=== PATIENT | male | born 2000 | race Two or more races ===

== ENCOUNTER 2020-08-27 10:11 | Emergency (ER) | payer OTHER, SELFPAY ==
--- NOTE | ~2020-08-27 | CT_ITS ---
EXAMINATION: CT FACIAL BONES WITH CONTRAST CLINICAL INFORMATION: Right facial swelling COMPARISON: None TECHNIQUE: 3 mm thin axial and reformatted 1.5 mm thin sagittal and coronal images of facial bones were obtained. This CT examination was performed using dose optimization techniques as appropriate, variously including the following: *Automated exposure control *Adjustment of mA and/or kV according to patient size (this includes techniques or standardized protocols for targeted exams where dose is matched to indication/reason for exam; i.e. extremities or head) *Use of iterative reconstruction technique DLP: 328 mGy-cm FINDINGS: Dental amalgam artifacts are seen throughout the oral cavity. There is no acute maxillofacial fracture. The pterygoid plates are intact. The zygomatic arches are intact. The lamina papyracea are intact. The orbital rims are intact. The paranasal sinuses are well-aerated. No air-fluid levels are seen. There is mild deviation of the nasal septum to the left. The ostiomeatal complexes are clear. The lamina papyracea are intact. The ethmoid roofs are symmetric. The carotid canals are normally covered by bone. No maxillary periapical disease is seen. There is mild soft tissue swelling along the right mandibular region, nonspecific edema. No evidence of dental abscess or fluid collection. The mastoid air cells and visualized middle ear cavities are well-aerated. The orbits are normal. The TMJs are unremarkable. The imaged portions of the brain demonstrate no acute abnormality. CT/CT facial bones w con IMPRESSION: No evidence of mass or dental abscess.. There is mild nonspecific right mandibular and maxillofacial soft tissue edema..
[2020-08-27 10:23] VITALS: BP 145/85; PULSE 93; RESP 16; TEMP 36.8; O2SAT 98; BMI 23.7
[2020-08-27 11:06] LABS: MANUAL DIFF FLAG NO
[2020-08-27 11:09] LABS: Basophils Percent Auto 0.4 % (0-2); Eosinophils Percent Auto 0.6 % (0-4); Hematocrit 47.2 % (42-52); Hemoglobin 15.2 g/dl (14.0-18.0); Imm Gran Abs Auto 0.02 X10*3/uL (0.00-0.03); Imm Gran Pct Auto 0.3 % (0.0-0.4); Lymphocytes Absolute Auto 1.8 X10*3/uL (1.2-4.9); Lymphocytes Percent Auto 25.8 % (20-40); Mean Corpuscular HGB Conc 32.2 g/dl (31.0-36.0); Mean Corpuscular Volume 90.1 fL (80-98); Mean Platelet Volume 10.8 fL (9.4-12.4); Monocytes Absolute Auto 0.7 X10*3/uL (0.1-1.2); Neutrophils Absolute Auto 4.3 X10*3/uL (2.0-8.3); Neutrophils Percent Auto 62.9 % (45-73); Platelet Count 216 X10*3/uL (160-400); Red Blood Count 5.24 X10*6/uL (4.60-5.80); White Blood Count 6.8 X10*3/uL (4.8-10.8)
[2020-08-27] MEDS: Ketorolac Tromethamine 15 MG/ML VIAL IVPUSH (11:11)
[2020-08-27] MEDS: Clindamycin Phosphate/D5W 600 MG/50 ML PIGGYBACK 100 MG IV (11:19)
[2020-08-27 11:32] LABS: Anion Gap 11 (12-20); Blood Urea Nitrogen 7 mg/dL (9-16); C Reactive Protein 1.71 mg/dL (< or = 0.50); Calcium 9.4 mg/dL (8.4-10.2); Carbon Dioxide 27 mmol/L (22-29); Chloride 106 mmol/L (96-108); Creatinine Clr Calc Pharmacy 179.9; Estimated Glomerular Filt Rate > 60; Glucose Random 92 mg/dL (60-115); Potassium 4.6 mmol/L (3.3-5.1); Sodium 139 mmol/L (135-145)
[2020-08-27 12:10] LABS: Erythrocyte Sedimentation Rate 2 MM/HR (0-15)
[2020-08-27] MEDS: iohexoL 350 MG/ML 100 ML INFUS..BTL IV (12:15)
--- NOTE | 2020-08-27 13:12 | ED_ITS ---
HPI - Dental/Oral General Chief complaint: Dental/Oral Stated complaint: dental pain Time Seen by Provider: 08/27/20 10:50 Source: patient Mode of arrival: ambulatory History of Present Illness HPI Narrative: 20-year-old male with no significant past medical history presenting to ED with right-sided facial swelling x couple days. Denies pain, dental procedures/pain/swelling, ear pain, drainage, sore throat, difficulty swallowing, fever, chills, cough Related Data Previous Rx's Medication Instructions Recorded acetaminophen [Tylenol Extra 500 mg PO Q6H PRN #20 tab 08/27/20 Strength] clindamycin HCl 450 mg PO Q8H 7 Days #32 cap 08/27/20 ibuprofen 800 mg PO Q8H PRN #14 tab 08/27/20 Allergies Allergy/AdvReac Type Severity Reaction Status Date / Time No Known Allergies Allergy Verified 08/27/20 10:22 Review of Systems Review of Systems: Constitutional: No Fever, No Chills ENT/Mouth: + facial swelling, No Ear Pain, No Nasal Congestion, No Sinus Pain, No sore throat, No Rhinorrhea, No Swallowing Difficulty, no dental pain Eyes: No Eye Pain, No Vision Changes Cardiovascular: No Chest Pain, No SOB Respiratory: No Cough Gastrointestinal: No Nausea, No Vomiting Musculoskeletal: No joint pain, No Myalgias, No Joint Swelling Skin: No Skin Lesions, No rash Neuro: No Weakness, No Numbness, No Headache Yes all other systems are reviewed and are negative [facility] Past Medical History Attestation statement: The following information was validated with the patient. Social History Social History Advance Directives: No Advance Directives Information Provided: No Physical Exam Vital Signs: Vital Signs: Last Vital Signs Temp 98.2 F 08/27/20 10:23 Pulse 93 08/27/20 10:23 Resp 16 08/27/20 10:23 BP 145/85 H 08/27/20 10:23 Pulse Ox 98 08/27/20 10:23 Body Mass Index 23.7 Const: General: cooperative and healthy appearing Orientation/consciousness: patient oriented x3 Limitations: no limitations HENMT: Other: Notable right-sided facial swelling/edema. No fluctuance/induration or cellulitis. Right upper 3rd molar cracked chronically, with mild gingival tenderness, no fluctuance/induration or erythema. Head: Yes normal to inspection Ears: hearing grossly normal bilaterally, external ears normal and TM's normal bilaterally General nose exam: Normal external nose present and Normal nares present Mouth: Normal oral and palatal mucosa present, lip normal, tongue normal and oropharynx normal Throat: Yes posterior oropharynx normal, Yes tonsils normal, Yes uvula midline, No uvula laterally displaced and No uvular edema Eyes: General: appearance normal, both eyes and all related structures EOM: EOMs intact bilaterally Neck: Neck: Yes normal visual inspection, Yes no lymphadenopathy, Yes no meningeal signs, Yes trachea midline, Yes supple and No anterior neck swelling Resp: Effort & Inspection: normal respiratory effort, not labored and no strid or Cardio: Rate: regular rate Skin: Rashes: no rashes Wounds: no wounds Neuro: General: patient oriented x3 and no meningeal signs Gait exam (Neuro): Normal gait present Extrem: General: Yes normal to inspection Course Course Course Narrative: -no leukocytosis, CRP mildly elevated, labs otherwise unremarkable CT facial bones w con IMPRESSION: No evidence of mass or dental abscess.. There is mild nonspecific right mandibular and maxillofacial soft tissue edema.. MDM - Dental/Oral MDM Narrative Medical decision making narrative: 20-year-old male with no significant past medical history presenting to ED with right-sided facial swelling x couple days. On exam vital signs stable, NAD, nontoxic appearing, notable right-sided facial swelling with chronically cracked right upper molar questionable for dental ab scess/infection vs edema. TMs WNL, posterior oropharynx WNL Plan: Labs, facial CT, IV clindamycin Medical Records Attestation: I reviewed the patient's medical records. Lab Data Attestation: I reviewed the patient's lab results. Result diagrams: 08/27/20 10:58 08/27/20 10:58 Labs: Lab Results 08/27/20 08/27/20 08/27/20 Range/Units 10:58 10:58 10:58 WBC 6.8 (4.8-10.8) X10*3/uL RBC 5.24 (4.60-5.80) X10*6/uL Hgb 15.2 (14.0-18.0) g/dl Hct 47.2 (42-52) % MCV 90.1 (80-98) fL MCH 29.0 (27.0-33.0) pg MCHC 32.2 (31.0-36.0) g/dl RDW 12.0 (11.0-16.0) % Plt Count 216 (160-400) X10*3/uL MPV 10.8 (9.4-12.4) fL Immature Gran % (Auto) 0.3 (0.0-0.4) % Neut % (Auto) 62.9 (45-73) % Lymph % (Auto) 25.8 (20-40) % Power % (Auto) 10.0 (2-11) % Eos % (Auto) 0.6 (0-4) % Baso % (Auto) 0.4 (0-2) % Lymph # (Auto) 1.8 (1.2-4.9) X10*3/uL Power # (Auto) 0.7 (0.1-1.2) X10*3/uL Eos # (Auto) 0.0 (0.0-0.4) X10*3/uL Baso # (Auto) 0.0 (0.0-0.2) X10*3/uL Abs Immat Gran (auto) 0.02 (0.00-0.03) X10*3/uL Absolute Neuts (auto) 4.3 (2.0-8.3) X10*3/uL Absolute Nucleated RBC 0.000 (0.0-0.012) X10*3/uL Nucleated RBC % (auto) 0.0 (0.0-0.2) /100WBC ESR 2 (0-15) MM/HR Sodium 139 (135-145) mmol/L Potassium 4.6 (3.3-5.1) mmol/L Chloride 106 (96-108) mmol/L Carbon Dioxide 27 (22-29) mmol/L Anion Gap 11 L (12-20) BUN 7 L (9-16) mg/dL Creatinine 0.74 (0.5-1.4) mg/dL Estim Creat Clear Calc 179.9 Estimated GFR > 60 Random Glucose 92 (60-115) mg/dL Calcium 9.4 (8.4-10.2) mg/dL C-Reactive Protein 1.71 H (< or = 0.50) mg/dL Discharge Plan Discharge Clinical Impression: Facial edema Patient Disposition: Home, Self-Care Instructions: Edema (ED) Additional Instructions: Your blood work was reassuring today in the ED Her CT scan showed nonspecific facial soft tissue edema/swelling, no discernible abscess or fluid collection Clindamycin antibiotic, take as prescribed In addition take ibuprofen and Tylenol at home for pain and swelling You need to follow-up with a dentist If your swelling persists or worsens, you develop constant persistent pain, or fever please return to the ED Prescriptions: New clindamycin HCl 300 mg capsule 450 mg PO Q8H 7 Days Qty: 32 RF: 0 acetaminophen [Tylenol Extra Strength] 500 mg tablet 500 mg PO Q6H PRN (Reason: pain or fever) Qty: 20 RF: 0 ibuprofen 800 mg tablet 800 mg PO Q8H PRN (Reason: pain) Qty: 14 RF: 0 Referrals: Silvino Reyna DMD [Dentist] - 2 days Nory Garcia DMD [Dentist] - 2 days
== END 2020-08-27 13:29 | disposition home or self-care (01) ==
PROVIDERS: Physician Assistant; Emergency Provider Emergency Medicine; PCP Nurse Practitioner Family
DX: K08.89 Other specified disorders of teeth and supporting structures (principal); R22.0 Localized swelling, mass and lump, head
CPT/HCPCS: 36415; 70487; 80048; 85025; 85652; 86140; 96365; 96375; 99283; 99284; J1885; Q9967

== ENCOUNTER 2025-03-30 06:28 | Emergency (ER) | payer OTHER, SELFPAY ==
[2025-03-30 06:43] VITALS: BP 115/74; PULSE 66; RESP 18; TEMP 36.7; O2SAT 97; BMI 20.1
[2025-03-30 07:07] LABS: COVID-19 Test Positive (Negative); IDNOW Serial# 6674DD1D
[2025-03-30 07:14] LABS: Influenza B2 Negative (Negative)
--- NOTE | 2025-03-30 07:25 | ED_ITS ---
HPI - General Adult General Chief complaint: Upper Respiratory Symptoms Stated complaint: resp symptoms Time Seen by Provider: 03/30/25 07:23 Source: patient Mode of arrival: ambulatory Limitations: no limitations History of Present Illness ED Provider: Sarah Gates PA-C HPI narrative: Patient is a 25 year old male with no reported medical history presenting to the emergency department today with body aches, cough, and headache. Patient states that over the last few day he has felt generally unwell with a headache, cough, and body aches. Patient states that he has family members who are also sick at home. Patient denies any other complaints at this time. Related Data Previous Rx's ?Medication ?Instructions ?Recorded acetaminophen 500 mg tablet 500 mg PO Q6H PRN pain or fever 08/27/20 (Tylenol Extra Strength) #20 tabs clindamycin HCl 300 mg capsule 450 mg (1.5 x 300 mg) P O Q8H 7 08/27/20 days #32 caps ibuprofen 800 mg tablet 800 mg PO Q8H PRN pain #14 t abs 08/27/20 ibuprofen 400 mg tablet 400 mg PO Q6H PRN fever or p ain 03/30/25 #14 tabs Allergies Allergy/AdvReac Type Severity Reaction Status Date / Time No Known Allergies Allergy Verified 03/30/25 06:43 Review of Systems Constitutional: Constitutional: Reports as per HPI Eyes: Eyes: Reports as per HPI ENT: Reports as per HPI Cardiovascular: Cardiovascular: Reports as per HPI Respiratory: Respiratory: Reports as per HPI Gastrointestinal: Gastrointestinal: Reports as per HPI Genitourinary: Genitourinary: Reports as per HPI Musculoskeletal: Musculoskeletal: Reports as per HPI Integumentary/Breasts: Skin/Breast: Reports as per HPI Neurologic: Reports as per HPI Psychiatric: Psychiatric: Reports as per HPI Endocrine: Endocrine: Reports as per HPI Hematologic/Lymphatic: Hematologic/Lymphatic: Reports as per HPI Allergic/Immunologic: Allergic/Immunologic: Reports as per HPI [facility] Past Medical History Attestation statement: The following information was validated with the patient. Source: old records reviewed and nursing notes reviewed Social History Social History Advance Directives: No Advance Directives Information Provided: No Physical Exam ED Vital Signs: Vital Signs - 24 hr 03/30/25 06:43 03/30/25 07:48 Temperature 98.0 F 98.0 F Pulse Rate 66 66 Respiratory Rate 18 18 Blood Pressure 115/74 115/74 Pulse Oximetry 97 97 Oxygen Delivery Method Room Air Room Air BMI result Body Mass Index 20.1 Const General: cooperative, no acute distress, alert and awake Nutritional Appearance: well nourished Orientation/consciousness: patient oriented x3 HENMT Head: Yes normal to inspection and Yes atraumatic Ears: hearing grossly normal bilaterally and external ears normal General nose exam: Normal external nose present, no nasal discharge noted and no epistaxis Face and sinus: Yes normal facial exam, No abrasion and No laceration Mouth: Normal oral and palatal mucosa present, no drooling and no muffled voice Eyes General: appearance normal, both eyes and all related structures Periorbital: periorbital findings normal Eyelids: Yes eyelids normal Conjunctivae: conjunctivae normal Pupils: Equal, round and reactive pupils present EOM: EOMs intact bilaterally Neck Neck: Yes normal visual inspection and Yes full ROM Resp Effort & Inspection: normal respiratory effort and able to speak in complete sentences Neuro General: patient oriented x3, moves all extremities and CN's II-XI intact bilaterally Cranial nerves: Yes Equal, round and reactive pupils present Cognition (Neuro): normal cognition Extrem General: Yes normal to inspection, Yes full ROM and Yes capillary refill normal Psych Appearance: grossly normal Mental Status: mental status grossly normal Affect: normal affect Attitude: cooperative Thought process: Normal thought process present Thought content: Normal thought content present Insight: Good insight present (Psych) Medical Decision Making Medical Decision Making MDM Narrative: Patient is a 25 year old male with no reported medical history presenting to the emergency department today with body aches, cough, and headache. Patient's physical exam was as noted in the physical exam portion of this note. Patient's COVID-19 and Influenza testing was positive. Patient's RSV testing was negative. I explained my physical exam findings as well as all test results to the patient. I answered all questions asked by the patient. I stressed the importance of the patient taking his medication as directed (either prescribed or as the over the counter packaging recommends). I stressed the importance of the patient following up with his primary care provider. I stressed the importance of the patient returning to the emergency department immediately if his symptoms were to worsen or if he were to develop any dizziness, shortness of breath, difficulty breathing, chest pain, blurry vision, loss of vision, nausea, vomiting, abdominal pain, fever, chills, back pain, or any other complaints. Patient verbalized agreement and understanding with this treatment plan and discharge. Differential Diagnosis Differential Diagnoses: The differential diagnosis associated with the presentation includes COVID-19 Influenza RSV Viral illness Admission/Observation Consideration of admission/observation: Escalation of care including admission/observation considered Patient would have been admitted to the hospital had his work up had any findings where hospital admission was appropriate and his clinical presentation warranted hospital admission. Lab Data [facility] Lab Attestation statement: I reviewed the patient's lab results. My interpretation of these results are in the [facility] Rationale portion of this note. Labs: Lab Results 03/30/25 Range/Units 06:47 COVID-19 (BLAIR) Positive A (Negative) COVID-19 Clin Com See Note Influenza Type A (JOSÉ) Positive A (Negative) Influenza Type B (JOSÉ) Negative (Negative) Influenza A & B Note See Note Tests considered The following testing was considered but not selected: I considered obtaining a chest x-ray however, the patient's current clinical presentation did not warrant this at this time. Prescription Management I considered prescription management with: Antiviral (I considered prescribing tamiflu or paxlovid however, the patient's current clinical presentation and lack of comorbidities did not warrant it at this time. ) Discharge Plan Discharge Clinical Impression: Influenza, COVID-19 Patient Disposition: Home, Self-Care Instructions: Influenza (DC), COVID-19 (Coronavirus Disease 2019) (ED) Additional Instructions: Your work up today was positive for COVID-19 and Influenza. Take ibuprofen + tylenol over the counter to control your fever. IF you are prescribed home medications and/or you are taking over the counter medications at home - it is very important you continue to do so as prescribed / directed unless told otherwise by a healthcare provider. Follow up with your primary care provider. Do your best to stay well hydrated and rest. Return to the emergency department immediately if your symptoms worsen or if you develop any numbness, tingling, dizziness, shortness of breath, difficulty br eathing, chest pain, blurry vision, loss of vision, nausea, vomiting, abdominal pain, fever, chills, back pain, or any other complaints. If you do not have a primary care provider - call any of the below numbers to establish and follow up with a primary care provider. [facility] Primary Care ([place]) [phone] [place] [address], [address] [facility] Primary Care ([address] [place]) [phone] [place] [address], [address] [facility], [address] [facility] Primary Care ([address] [place]) [phone] [place] [address], [address] [facility], [address] [facility] Primary Care ([place]) [phone] [place] [address] [address] [facility], [address] [facility] Family Medicine [phone] [address] [facility], [address] Please see the information below about our Patient Portal. If you are not yet enrolled in the [facility] Patient Portal, you will receive an enrollment email invitation following your visit to any [facility] setting. You may also self-enroll in the Patient Portal by visiting our website: [email or web address] The following information is required to access the Patient Portal: - Your [facility] Medical Record Number - Your personal home email address (must match what is in your electronic medical record, Registration staff can assist with this) - Name - Date of Capabilities of the Patient Portal: - Message some providers - View upcoming appointments - Access your health summary, medical history, and visit history - View current conditions and allergies - View procedure and lab results - View your medications, including guidelines, side effects, and precautions - Complete pre-appointment questionnaires requested by your provider - Ready summary reports of your office visits and procedures To access the Patient Portal Mobile [employer]athalia, follow these directions: - Search [employer] in the Nathalia Store or Google Play Store - Download the Nathalia - Search for [facility] - Enter your login/password Prescriptions: New ibuprofen 400 mg tablet 400 mg PO Q6H PRN (Reason: fever or pain) Qty: 14 0RF No Action clindamycin HCl 300 mg capsule 450 mg PO Q8H 7 Days Qty: 32 0RF acetaminophen [Tylenol Extra Strength] 500 mg tablet 500 mg PO Q6H PRN (Reason: pain or fever) Qty: 20 0RF ibuprofen 800 mg tablet 800 mg PO Q8H PRN (Reason: pain) Qty: 14 0RF Stand Alone Forms: Work/School Release Interventions: ED Discharge Assessment Last Done: 03/30/25 07:48 Discharge Date/Time: 03/30/25 07:57 Print Language: New Zealander
--- OUTSIDE RECORDS SUMMARY | 2025-03-30 07:42 | XMS_ITS | Encounter Summary ---
Author Organization [facility] Address [address] [place] [phone] Phone Care Team Providers Care Job Lithographer Name Role Phone Mary Benitez NP Primary Care Provider Grace leiva Encounter Details Date Type Department Care Team (Late st Contact Info) Description 06/03/2011 Documentation EM Family Medicine [address] [place] [address] Family Medicine, Physician [address] [place] [address] Social History Tobacco Use Types Packs/Day Years Used Date Smoking Tobacco: Never Assessed Sex and Gender Information Value Date Recorded Sex Assigned at Not on file Legal Sex Male 5:07 PM EDT Gender Identity Not on file Sexual Orientation Not on file documented as of this encounter Plan of Treatment Not on file documented as of this encounter Visit Diagnoses Not on filedocumented in this encounter Care Teams Job Lithographer Relationship Specialty Start Date End Date Mary Benitez NP PCP - General 11/13/16 09/03/22 documented as of this encounter
--- OUTSIDE RECORDS SUMMARY | 2025-03-30 07:42 | XMS_ITS | Encounter Summary ---
Author Organization [facility] Address [address] [place] [address] Phone Care Team Providers Care Vulcanizer Operator Name Role Phone Mary Benitez NP Primary Care Provider Grace leiva Encounter Details Date Type Department Care Team (Late st Contact Info) Description 11/19/2016 Conversion Encounter [facility] - [address] [address] Social History Tobacco Use Types Packs/Day Years [...] on filedocumented in this encounter Care Teams Vulcanizer Operator Relationship Specialty Start Date End Date Mary Benitez NP PCP - General 11/13/16 09/03/22 documented as of this encounter
--- OUTSIDE RECORDS SUMMARY | 2025-03-30 07:42 | XMS_ITS | Clinical Summary ---
Author Organization [facility] Address [address] [place] [address] Phone Care Team Providers Care Wilderness Guide Name Role Phone Unavailable Primary Care Provider Unavailabl e Active Problems Problem Noted Date Diagnosed Date Asthma 12/31/2010 Attention deficit hyperactivity disorder 011 Immunizations Immunization Administration Dates Next Due DTaP 5 10/22/2004, 1,2000,03/11 HPV, Quadrivalent 02/05/2014,05/03/2013,11/29/19 13 Hep A, ped/adol 07/17/2015 Hep B, ped/adol 2000,2000,2000 Hib (PRP-T) 05/04/2001, 1,2000,03/11 IPV 10/22/2004, 1,2000,03/11 Influenza Split 05/04/2012,02/03/2012,12/31/2010 Influenza, injectable, quadrivalent 02/05/2014 Influenza, injectable, quadr ivalent, preservative free 05/03/2013 Influenza, injectable, trivalent 12/31/2008,02/03 MMR 04/10/2005,03/09/2001 Meningococcal Conj (Menactra) MCV4P 08/25/2011 Tdap 08/25/2011 Varicella 02/20/2008,01/04/2001 Family History Relation Name Status Comments Brother Alive Brother: Alive and well Mother Alive Mother: Migrain es Other Family history of Hyperlipidemia, Family history of Diabetes mellitus, Family history of Obesity Sister Alive Sister: Alive a nd well, Asthma Social History Tobacco Use Types Packs/Day Years Used Date Smoking Tobacco: Never Assessed Sex and Gender Information Value Date Recorded Sex Assigned at Not on file Legal Sex Male 5:07 PM EDT Gender Identity Not on file Sexual Orientation Not on file Last Filed Vital Signs Vital Sign Reading Time Taken Comments Blood Pressure 119/71 09/11/2015 12:00 AM EDT Pulse 66 09/11/2015 12:00 AM EDT Temperature 36.2 C (97.2 F) 09/11/2015 12:00 AM EDT Respiratory Rate - - Oxygen Saturation - - Inhaled Oxygen Concentration - - Weight 66 kg (145 lb 9.6 oz) 09/11/2015 12:00 AM EDT Height 175.9 cm (5' 9.25 ) 07/17/2015 12:00 AM E DT Body Mass Index - - Plan of Treatment Health Maintenance Due Date Last Done Comments Hepatitis A Vaccines (2 of 2 - 2-dose series) 01/16/2016 07/17/2015 DTaP,Tdap,and Td Vaccines (6 - Td or Tdap) 08/24/2021 08/25/2011, 10/22/2004, 2000, Additional history exists Influenza Vaccines (#1) 2024 02/06/20 14, 05/03/2013, 05/04/2012, Additional history exists COVID-19 Vaccine ( season) 2024 Hepatitis B Vaccines Completed 2000, 2000, 2000 HIB Vaccines Completed 05/04/2001, 07/04, 2000, Additional history exists IPV Vaccines Completed 10/22/2004, 07/04, 2000, Additional history exists MMR Vaccines Completed 04/10/2005, 03/09/2001 Varicella Vaccines Completed 02/20/2008, 01/04/2001 Meningococcal Vaccine Aged Out 08/25/2011 No jose abdirahman eligible based on patient's age to complete this topic HPV Vaccines Completed 02/05/2014, 04/06, 11/28/2012 Men B Vaccine Aged Out No longer elig ible based on patient's age to complete this topic Pneumococcal Vaccine Aged Out No long er eligible based on patient's age to complete this topic
--- OUTSIDE RECORDS SUMMARY | 2025-03-30 07:42 | XMS_ITS | Encounter Summary ---
Author Organization [facility] Address [address] [place] [address] Phone Care Team Providers Care Tax Collection Coordinator Name Role Phone Mary Benitez NP Primary Care Provider Grace leiva Encounter Details Date Type Department Care Team (Late st Contact Info) Description 08/18/2011 Documentation EM Family Medicine [address] [place] [address] Family Medicine, Physician [address] [place] [address] Social History Tobacco Use Types Packs/Day Years [...] on filedocumented in this encounter Care Teams Tax Collection Coordinator Relationship Specialty Start Date End Date Mary Benitez NP PCP - General 11/13/16 09/03/22 documented as of this encounter
--- OUTSIDE RECORDS SUMMARY | 2025-03-30 07:42 | XMS_ITS ---
Author Name [facility] Organization Unknown Care Team Organization Name Specialty Phone Email Start Date End Da te [facility] Susan Griffith Primary Care 02/10/2022 11/22/2023
--- OUTSIDE RECORDS SUMMARY | 2025-03-30 07:42 | XMS_ITS | Encounter Summary ---
Author Organization [facility] Address [address] [place] [id number] Phone Care Team Providers Care Powerhouse Mechanic Apprentice Name Role Phone Mary Benitez NP Primary Care Provider Grace leiva Encounter Details Date Type Department Care Team (Late st Contact Info) Description 06/02/2011 Documentation EM Family Medicine [address] [place] [address] Family Medicine, Physician [address] [place] [address] Social History Tobacco Use Types Packs/Day Years [...] on filedocumented in this encounter Care Teams Powerhouse Mechanic Apprentice Relationship Specialty Start Date End Date Mary Benitez NP PCP - General 11/13/16 09/03/22 documented as of this encounter
[2025-03-30 07:48] VITALS: BP 115/74; PULSE 66; RESP 18; TEMP 36.7; O2SAT 97
--- NOTE | 2025-03-30 07:48 | PC.NURSE ---
PT WAS SEEN IN THE PIT CHAIR BY PROVIDER
== END 2025-03-30 07:57 | disposition home or self-care (01) ==
PROVIDERS: Emergency Provider Emergency Medicine
DX: J10.1 Influenza due to other identified influenza virus with other respiratory manifestations (principal); U07.1 COVID-19; R05.9 Cough, unspecified; R51.9 Headache, unspecified; M79.10 Myalgia, unspecified site
CPT/HCPCS: 87502; 87635; 99282; 99283